=== PATIENT | male | born 1985 | race Caucasian/White ===

== ENCOUNTER 2021-10-08 23:12 | Emergency (ER) | payer OTHER ==
[~2021-10-08] VITALS: Ht 172.7 cm; Wt 95.3 kg
--- NOTE | 2021-10-08 23:12 | NUR ---
[facility] TO CHAIR A.
[2021-10-08 23:22] VITALS: BP 138/98
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
--- NOTE | 2021-10-08 23:30 | NUR ---
Dr. Rubio at chair A and exam patient.
[2021-10-08 23:56] VITALS: BP 138/98
--- NOTE | 2021-10-08 23:56 | NUR ---
Patient D/C to custody with [facility].
== END 2021-10-08 23:56 ==
LOC: MED 23:12
DX: Z02.89 Encounter for other administrative examinations (principal); V98.8XXA Other specified transport accidents, initial encounter; Y93.89 Activity, other specified; Y92.89 Other specified places as the place of occurrence of the external cause; Y99.8 Other external cause status
CPT/HCPCS: 99283